=== PATIENT | female | born 1990 | race Caucasian/White ===

== ENCOUNTER 2016-04-06 07:15 | Observation (INO) | payer MEDICAID ==
[2016-04-06] MEDS ORDERED: LIDOCAINE 1% 5 ML SDV ONE (08:08)
[2016-04-06] MEDS ORDERED: LIDO/EPI 1% **Not for Epidural 20 ML MDV ONE (08:43)
[2016-04-06] MEDS ORDERED: LR 1,000 ML IV ONE (08:49)
[2016-04-06] MEDS ORDERED: LIDOCAINE 1% 5 ML SDV ID PRN (08:49)
[2016-04-06] MEDS ORDERED: DEXAMETHASONE 10 MG/ML VIAL IVP ONE (10:00)
[2016-04-06] MEDS ORDERED: MIDAZOLAM 2 MG/2 ML VIAL ONE (10:16)
[2016-04-06] MEDS ORDERED: PROPOFOL 200 MG/20 ML VIAL ONE (10:29)
[2016-04-06] MEDS ORDERED: fentaNYL 250 MCG/5 ML INJ ONE (10:29)
[2016-04-06] MEDS ORDERED: D5W 1/2 NS W/ 20 KCl/L 1,000 ML IV SCH (10:30)
[2016-04-06] MEDS ORDERED: ACETAMINOPHEN 650 MG/20.3 ML UDCUP PO PRN (10:32)
[2016-04-06] MEDS ORDERED: MEPERIDINE 25 MG/ML SYR ONE (11:30)
[2016-04-06] MEDS ORDERED: fentaNYL 100 MCG/2 ML INJ ONE ×2 (11:30→11:58)
[2016-04-06] MEDS ORDERED: ONDANSETRON 4 MG/2 ML VIAL ONE (11:49)
[2016-04-06] MEDS ORDERED: PROMETHAZINE HCL 25 MG/ML INJ ONE (11:49)
[2016-04-06] MEDS ORDERED: OXYCODONE/APAP 5/325 TAB ONE ×2 (12:39→12:43)
[2016-04-06] MEDS: ONDANSETRON 4 MG/2 ML VIAL IVP PRN (16:10)
[2016-04-06] MEDS: oxyCODONE ORAL SOLUTION 10 MG/0.5 ML UDSYR PO PRN ×2 (16:50→23:04)
--- NOTE | 2016-04-06 17:40 | POSTOPPROG ---
Post Op Note Date of Operation: 04/06/16 Surgeon: Dedra Pantoja Anesthesiologist: cherelle curran Anesthesia: GET(General Endotracheal) Pre-op Diagnosis: MILES, nasal obstruction, recurrent strep Post-op Diagnosis: same Procedure: Tonsillectomy B > 12, SMR turbs B Findings: 2+ tonsils, narrow OP, enlarged ITs B. Inf/Abcess present in the surg proc area at time of surgery?: No EBL: Minimal Complications: none apparent Specimen(s): tonsils x 2
[2016-04-06] MEDS: SODIUM CL NASAL 45 ML BTL EACHNARE SCH ×2 (18:15→21:24)
[2016-04-06] MEDS: DOXYCYCLINE HYCLATE 100 MG CAP/TAB PO SCH (21:23)
[2016-04-07] MEDS: SODIUM CL NASAL 45 ML BTL EACHNARE SCH ×5 (01:07→11:52)
[2016-04-07] MEDS: oxyCODONE ORAL SOLUTION 10 MG/0.5 ML UDSYR PO PRN ×2 (05:30→11:51)
[2016-04-07] MEDS: ONDANSETRON 4 MG/2 ML VIAL IVP PRN (07:33)
[2016-04-07] MEDS: DOXYCYCLINE HYCLATE 100 MG CAP/TAB PO SCH (07:33)
[2016-04-07 08:05] VITALS: BP 126/72; PULSE 78; RESP 18; TEMP 98.4; O2SAT 93
--- NOTE | 2016-04-07 12:51 | SOAPPROG ---
SOAP Progress Note Assessment/Plan: Assessment: POD 1 Tonsillectomy and SMR turbs. DOing well. No o2 o/n. Swallowing well. Pain controlled with pain meds. D/c home today, rtc 4 weeks Plan: 04/07/16 12:49 Subjective: did well, eating ok. tolerating pain. No O2 needs o/n Objective: AAOx3 AFVSS RA no bleeding Vital Signs Temp Pulse Resp BP Pulse Ox 36.9 C 78 18 126/72 H 93 04/07/16 08:00 04/07/16 08:00 04/07/16 08:00 04/07/16 08:00 04/07/16 08:00 04/06/16 04/07/16 04/08/16 05:59 05:59 05:59 Intake Total 1693 Output Total 1770 200 Balance -77 -200
== END 2016-04-07 13:14 | disposition home or self-care (01) ==
LOC: INTOOBSV 07:37 → F3N 07:37 → F3E 14:01
PROVIDERS: ADMIT Otolaryngology; ATTEND Otolaryngology
PROC: 0CTPXZZ Resection of Tonsils, External Approach (ICD-10-PCS; principal; 2016-04-06 09:45)
PROC: 09TL0ZZ Resection of Nasal Turbinate, Open Approach (ICD-10-PCS; principal; 2016-04-06 09:45)
DX: J35.1 Hypertrophy of tonsils (principal); J34.89 Other specified disorders of nose and nasal sinuses; J31.0 Chronic rhinitis; G47.33 Obstructive sleep apnea (adult) (pediatric)
CPT/HCPCS: 30140; 42826; G0378; J2250; J2405; J2550; J2704; J3010